=== PATIENT | male | born 1980 | race Two or more races ===

== ENCOUNTER 2024-08-11 09:03 | Emergency (ER) | payer OTHER, SELFPAY ==
[2024-08-11 09:20] VITALS: BMI 31.9
[2024-08-11 09:24] VITALS: BP 162/105; PULSE 88; RESP 18; TEMP 37; O2SAT 97
--- NOTE | 2024-08-11 09:48 | PD.EDWOUND ---
ED Wound/Laceration-RME/HPI General Chief Complaint: Wound/Laceration Stated Complaint: LACERATION Time Seen by Provider: 08/11/24 09:09 Arrival date/time: 08/11/24 09:03 RME / HPI RME / HPI narrative: 44 year old male presents to the ED for evaluation of laceration to right hand. States he and several other guys were carrying a ~300lb piece of glass when it shattered, cutting him on the right hand. Accompanied by bleeding that was controlled with pressure dressing on scene. While in the ED reports very mild pain to the cuts otherwise no other injuries or complaints reported. Patient does not recall when his last tetanus vaccine was. Related Data Home Medications ?Medication ?Instructions ?Recorded ?Confirmed sertraline 50 mg tablet 50 mg PO DAILY 11/24/23 11/24/23 Allergies Allergy/AdvReac Type Severity Reaction Status Date / Time No Known Allergies Allergy Verified 11/25/23 09:25 Review of Systems Review of Systems Narrative Review of Systems: Constitutional: DENIES; Fevers Eyes: DENIES; Loss of vision Head/Ear/Nose: DENIES; Loss of hearing Throat: DENIES; Dysphagia Cardiovascular: DENIES; Chest pain, dyspnea or syncope Respiratory: DENIES; Shortness of breath Gastrointestinal: DENIES; Rectal bleeding or melena. Genitourinary: DENIES; Dysuria (painful or difficult urination) Musculoskeletal: SEE HPI +lacerations to right hand. DENIES; Arthralgia (pain in a joint),; Skin: DENIES; Rash Neurological: DENIES; Loss of function or movement Psychiatric: DENIES; recent major life stressor, emotional problem, illicit drug use or abuse Endocrinology: DENIES; Weight change Hematologic/Lymphatic: DENIES; Abnormal bruising Allergic/Immunologic: DENIES; Urticaria (hives) Past Medical History Past Medical History NEUROLOGIC: Negative Neurological Disorders CARDIAC: Negative Cardiac Disorders GASTROINTESTINAL: Negative Gastrointestinal Disorders GENITOURINARY: Negative Genitourinary Disorders or Renal Disease MUSCULOSKELETAL: Negative Musculoskeletal Disorders ENDOCRINE: Negative Endocrine Disorders HEMATOLOGIC: Negative Blood Disorders PSYCHO/SOCIAL: Positive Anxiety Family History FAMILY HISTORY: Negative Family Psychiatric Problems, Family Respiratory Disorders, Family Cardiac Disorders, Family Gastrointestinal Problems, Family Cancer, Family Surgery or Family Anesthesia Reaction Social History SMOKING STATUS: Never smoker ED Exam Narrative Physical exam: Physical Exam: General: The vital signs were reviewed. The patient is non-toxic, in no apparent distress and appears healthy with a patent airway, no respiratory distress and has no apparent circulatory problems. Head & Scalp: Normocephalic, atraumatic. Face: Appears normal and is without lesions, deformity. Ears: Left external pinna appears normal. Right external pinna appears normal. Eyes: The sclera is anicteric. No obvious photophobia. The Left and Right Orbit/Lid/Conjunctiva appears normal without swelling, discoloration or injection. Nose: The nose is without deformity, discharge or tenderness; Throat: Appears normal. The mucous membranes are pink and moist without exudates, redness or mass seen. The tongue appears normal. Neck: The neck is supple and no apparent mass or adenopathy. Chest: The chest wall is normal in size and symmetry and has no chest wall tenderness or crepitus. The patient displays normal ventilator effort without retractions, accessory muscle use and has adequate air movement bilaterally with no wheezes and no rales. Cardiovascular: Regular rate and rhythm; No murmurs, rubs, or gallops; Gastrointestinal: The abdomen appears normal. No obvious hernias or mass. The abdomen is soft and benign, non-distended, with no pain, no guarding and no rebound tenderness. Bowel sounds are present and normal sounding. No CVA tenderness. Genitourinary: Back/Spine: Extremities/Musculoskeletal/lymphatic: The right hand has some old blood on it there is no active bleeding. There are 2 lacerations identified 1 the proximal palmar aspect of the hand approximately 1 cm superficial with a small opening goes deeper. No foreign body is seen no foreign body is felt by the patient. Distally on the fourth finger is a 1 cm superficial laceration minimally gaping on the finger pad. Again no foreign body seen minimal bleeding. The bilateral upper and lower extremities are warm. There is no evidence of arterial insufficiency. There is no evidence of venous insufficiency/edema. The patient spontaneously moves bilateral upper and lower extremities with no pain and no limitation of movement. There is no apparent, injury or trauma. Skin: The skin is warm, dry and intact. No rashes. No petechia. No purpura. No abnormal bruising. The color is appropriate with no cyanosis. Mental status/Psychiatric: Mental status is appropriate for age. The patient has no apparent delusions, visual hallucinations, no apparent audible hallucinations. The patient has no apparent suicidal thoughts/ideation and no apparent homicidal thoughts/ideation. Neurological: The patient is awake, alert, interactive, cordial, cooperative and is oriented to name and situation. The patient follows commands and answers historical question with no impairment. There is no visual disturbance apparent. The pupils are equal and reactive bilaterally with normal eye movements and no diplopia The bilateral upper and lower extremities have normal strength, normal range of motion and normal functioning. The gait, station and balance appear to be baseline with no acute change Course Quality Measures none Orders Category Date Time Status Miscellaneous Nursing Order NOW Care 08/11/24 12:47 Completed XR hand comp RT min 3V Stat Exams 08/11/24 10:01 Completed Tet,Diphth,Pertuss(Acell)-Tdap [Boostrix Vacc] Med 08/11/24 10:02 Discontinued 0.5 ml IMI .ONCE ONE Vital Signs Vital signs: Vital Signs Temperature 98.6 F 08/11/24 09:24 Pulse Rate 88 08/11/24 09:24 Respiratory Rate 18 08/11/24 09:24 Blood Pressure 162/105 H 08/11/24 09:24 Pulse Oximetry (%) 97 08/11/24 09:24 Oxygen Delivery Method Room Air 08/11/24 09:24 Pulse ox is 97% on room air which is adequate. Wound / Laceration MDM Narrative MDM Narrative:: Rosalinda Barr am scribing for and in the presence of Dr. Sanz. Patient is [employer]. received several lacerations to his hand which were both superficial involving the right palmar aspect proxy 1 cm with a of small puncture component. This wound should heal by secondary tension quite nicely. The right fourth finger at the distal finger pad has a 1 cm laceration reapproximates just fine The first wound will let heal by secondary intention and the second line we can offer some Steri-Strips to protect the hand. X-rays were done reveal no fracture dislocation there is a questionable foreign body in the proximal phalanx of the hand which is very round small and not palpable on the finger nor is there any wound to that area making this think this is just some type of osseous or calcified body in the soft tissue. Patient also states he has no sensation of his spicule or pain when palpating the whole proximal phalanx and note there is no wound no blood and no hint of tenderness making this a false positive read on the x-ray. The location of the 2 lacerations reveal no foreign body seen. Plan this time will be Steri-Strips as mentioned dress and follow-up with Workmen[employer] Comp. doctor in 2 days for wound check. He can have modified work protecting that right hand. Patient data External records reviewed:: [facility] previous records (I reviewed H&P on 11/25/2023) and EMS form Clinical information provided by:: patient Social determinants that could affect healthcare access:: none Patient has the following chronic illnesses:: None reported How is presenting disease/condition affected by chronic disease/condition?: no chronic disease Evaluation data The following diagnostics were reviewed and interpreted by me:: other (specify) (No diagnostics ordered ) Lab and/or radiology exams considered but not ordered:: None Interpretation Summary: Ordering Physician: Kamron Sanz MD Date of Service: 08/11/24 Procedure(s): XR hand comp RT min 3V Accession Number(s): [id number] cc: Nakul Skinner MD; Kamron Sanz MD; Won Davila MD~ Examination: Hand, right 3 views Technique: Hand AP, oblique, lateral 3 views Date and time of exam: August 11, 2024 1003 hrs. Indications: Laceration to the hand today with pain Findings: Minute opacity in the soft tissue adjacent to the proximal phalanx third digit, clinical correlation advised No fracture No dislocation Impression: No fracture Minute opacity in the soft tissue adjacent to the proximal phalanx third digit Dictated By: Won Davila MD Signed By: <Electronically signed by Won Davila MD in [place]> 08/11/24 1028 Medications / Prescriptions Medications or Prescriptions considered but not ordered:: None Medication administrations:: Medication Administration History Discontinued Medications Diphtheria/Tetanus/Acell Pertussis (Diphth,Pertuss(Acell),Tet Vac 0.5 Ml Syr) 0.5 ml IMi .ONCE ONE Stop: 08/11/24 10:03 Last Admin: 08/11/24 10:20 Dose: 0.5 ml Documented By: AVM See above Consultations Consultation(s) initiated? (list below): No Diagnosis Wound Differential Diagnosis: laceration, abscess, abrasion and avulsion of skin Most likely diagnosis given after review of the tests above:: Encounter related to workers compensation claim Hand laceration Admission Indicated Admission indicated?: not indicated Admission Request Was there a request for admission?: No Disposition Plan Disposition Plan: Discharge Discharge Attestation Discharge Attestation: The patient and all family members were given an opportunity to ask questions and understood the discharge instructions. Discharge instructions specifically effects, indications for sooner follow up or return to the emergency department, and the expected course of current diagnosis. Patient condition: Stable Discharge Plan Plan Patient Disposition: HOME (Self Care) Prescriptions/Referrals Prescriptions/Med Rec: No Action sertraline 50 mg tablet 50 mg PO DAILY Patient Comments: TAKE 1 TABLET BY MOUTH DAILY Referrals: Nakul Skinner MD [Primary Care Provider] - In 1 week Problem List Clinical Impression: Encounter related to worker's compensation claim, Hand laceration Patient/Caregiver Discharge Instructions Additional Instructions: You have 2 small lacerations of the hand that will be Steri-Stripped and allowed to heal naturally. Need to protect that hand for the next couple days. Follow-up with your [employer]'s [employer] doctor for recheck in 2 days. Note the x-ray reveals no foreign body over the areas where your wounds are. And as we discussed there is an incidental foreign body appearing opacity that does not correlate with our current wounds today Beginning read infection swelling getting worse anyway please return for reevaluation. 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 Print Language: Yoruba Stand Alone Forms: Patient Portal Info Letter
--- NOTE | 2024-08-11 10:01 | XR_ITS ---
Examination: Hand, right 3 views Technique: Hand AP, oblique, lateral 3 views Date and time of exam: August 11, 2024 1003 hrs. Indications: Laceration to the hand today with pain Findings: Minute opacity in the soft tissue adjacent to the proximal phalanx third digit, clinical correlation advised No fracture No dislocation Impression: No fracture Minute opacity in the soft tissue adjacent to the proximal phalanx third digit
[2024-08-11] MEDS: DIPHTH,PERTUSS(ACELL),TET VAC 0.5 ML SYR IMi (10:20)
[2024-08-11 13:10] VITALS: BP 160/101; PULSE 84; RESP 96; TEMP 37; O2SAT 100
== END 2024-08-11 13:24 | disposition home or self-care (01) ==
PROVIDERS: Emergency Provider Emergency Medicine; PCP Family Medicine
DX: S61.411A Laceration without foreign body of right hand, initial encounter (principal); W25.XXXA Contact with sharp glass, initial encounter; Z23 Encounter for immunization
CPT/HCPCS: 73130; 90471; 90715; 99283